=== PATIENT | male | born 1945 | race Caucasian/White ===

== ENCOUNTER 2017-10-25 16:53 | Emergency (ER) | payer MEDICARE, OTHER ==
[~2017-10-25] VITALS: Ht 175.3 cm; Wt 88.0 kg
[~2017-10-25 16:53] MED LIST: METROPOLOL
[2017-10-25 17:14] VITALS: BP 186/107
[2017-10-25] MEDS ORDERED: KETOROLAC 60MG/2ML VIAL IM ONE (17:30)
[2017-10-25] MEDS ORDERED: DIAZEPAM 2 MG TABLET PO ONE (17:30)
== END 2017-10-25 18:45 | disposition home or self-care (01) ==
LOC: ER 17:32
DX: M54.2 Cervicalgia (principal); I10 Essential (primary) hypertension; E78.00 Pure hypercholesterolemia, unspecified; E78.5 Hyperlipidemia, unspecified; Z86.73 Personal history of transient ischemic attack (TIA), and cerebral infarction without residual deficits
CPT/HCPCS: 72125; 96372; 99284; J1885

== ENCOUNTER 2018-01-16 07:12 | Emergency (ER) | payer MEDICAID, MEDICARE, OTHER ==
[~2018-01-16] VITALS: Ht 175.3 cm; Wt 82.0 kg
[2018-01-16] MEDS ORDERED: MAGNESIUM/ALUMINUM HYDROXIDE/SIMETHICONE 30ML UDC PO STA (07:55)
[2018-01-16] MEDS ORDERED: FAMOTIDINE 20MG/2ML VIAL IV STA (07:55)
[2018-01-16] MEDS ORDERED: ACETAMINOPHEN 325MG TABLET PO ONE (08:00)
[2018-01-16] MEDS ORDERED: METOPROLOL TARTRATE 25MG TABLET PO ONE (08:00)
[2018-01-16] MEDS ORDERED: ASPIRIN 81MG TABLET PO ONE (08:00)
[2018-01-16 08:14] LABS: BASOPHILS % 1.3 % (0.0-2.0); HEMATOCRIT. 44.2 % (42.0-52.0); HEMOGLOBIN. 14.9 g/dL (14.0-18.0); LYMPHOCYTES % 13.7 % (20.0-50.0); MEAN CORPUSCULAR HEMOGLOBIN 28.8 pg (28.0-32.0); MEAN CORPUSCULAR VOLUME 85.2 fL (80.0-94.0); MEAN PLATELET VOLUME 7.8 fl (7.4-10.4); MONOCYTES % 7.7 % (2.0-8.0); NEUTROPHILS % 73.3 % (40.0-76.0); PLATELET 224 x1000/uL (130-400); RED BLOOD CELL COUNT 5.19 mill/uL (4.7-6.1); RED CELL DISTRIBUTION WIDTH 15.4 % (11.6-14.6)
[2018-01-16 08:21] LABS: INR 1.1; PROTHROMBIN TIME 11.4 sec (9.4-11.6)
[2018-01-16 08:25] LABS: CHLORIDE 102 mEq/L (98-107)
[2018-01-16 13:30] VITALS: BP 167/95
== END 2018-01-16 14:33 | disposition home or self-care (01) ==
LOC: ER 08:28
DX: M25.561 Pain in right knee (principal); M25.461 Effusion, right knee; J45.909 Unspecified asthma, uncomplicated; I10 Essential (primary) hypertension; M19.90 Unspecified osteoarthritis, unspecified site; Z79.82 Long term (current) use of aspirin; Z86.73 Personal history of transient ischemic attack (TIA), and cerebral infarction without residual deficits; Z96.651 Presence of right artificial knee joint
CPT/HCPCS: 36415; 71045; 73562; 80053; 84484; 85025; 85610; 93005; 93971; 96374; 99285; J3490